=== PATIENT | female | born 1985 | race Caucasian/White ===

== ENCOUNTER 2018-12-24 08:50 | Day surgery (SDC) | payer MEDICAID ==
[2018-12-24] MEDS ORDERED: FENTAnyl 50 MCG/ML VIAL (10:00)
[2018-12-24] MEDS ORDERED: MIDAZOLAM 1 MG/ML 2 ML INJ (10:00)
[2018-12-24] MEDS ORDERED: PROPOFOL 20 ML (10:53)
[2018-12-24] MEDS ORDERED: NEOSTIGMINE 3 MG/3 ML SYRINGE (10:53)
[2018-12-24] MEDS ORDERED: ONDANSETRON 4 MG INJ (10:53)
[2018-12-24] MEDS ORDERED: CEFAZOLIN 1 GM INJ (10:53)
[2018-12-24] MEDS ORDERED: LIDOCAINE 2% (SDV) 5 ML INJ (10:53)
[2018-12-24] MEDS ORDERED: GLYCOPYRROLATE 0.4 MG INJ (10:53)
[2018-12-24] MEDS ORDERED: ROCURONIUM 50 MG INJ (10:53)
[2018-12-24] MEDS ORDERED: KETOROLAC 30 MG INJ (10:54)
[2018-12-24] MEDS ORDERED: DIPHENHYDRAMINE 50 MG INJ IV (11:30)
[2018-12-24] MEDS ORDERED: FENTAnyl 50 MCG/ML VIAL IV (11:30)
[2018-12-24] MEDS ORDERED: HYDROmorphONE 1 MG/5 ML IV SYRINGE IV (11:30)
[2018-12-24] MEDS ORDERED: ONDANSETRON 4 MG INJ IV (11:30)
[2018-12-24] MEDS ORDERED: METOCLOPRAMIDE 10 MG INJ IV (11:30)
[2018-12-24] MEDS: MEPERIDINE 25 MG INJ IV (11:35)
[2018-12-24] MEDS: HYDROmorphONE 1 MG/5 ML IV SYRINGE IV (11:36)
== END 2018-12-24 13:28 | disposition home or self-care (01) ==
LOC: SDS 08:50
DX: Z30.2 Encounter for sterilization (principal)
CPT/HCPCS: 58670

== ENCOUNTER 2019-02-07 16:37 | Emergency (ER) | payer MEDICAID | END 2019-02-07 21:40 | disposition home or self-care (01) | LOC: FTE 21:40 | DX: L08.9 Local infection of the skin and subcutaneous tissue, unspecified (principal) | CPT/HCPCS: 76536; 99284-25 ==